=== PATIENT | female | born 1930 | race Caucasian/White ===

== ENCOUNTER → 2017-04-01 | Outpatient (CLI) | payer MEDICARE ==
--- NOTE | 2017-04-01 11:58 | ECHOF ---
Referral Reason:R01.1 cardiac murmur unspecified MEASUREMENTS -------- HEIGHT: 154.9 cm WEIGHT: 51.7 kg BP: 109/59 RVIDd: 2.9 cm (< 3.3) IVSd: 0.8 cm (0.6 - 1.1) LVIDd: 3.5 cm (3.9 - 5.3) LVPWd: 0.9 cm (0.6 - 1.1) IVSs: 1.4 cm LVIDs: 2.2 cm LVPWs: 1.3 cm LA Diam: 2.9 cm (2.7 - 3.8) LAESV Index (A-L): 17.52 ml/m Ao Diam: 2.9 cm (2.0 - 3.7) AV Cusp: 1.5 cm (1.5 - 2.6) MV EXCURSION: 11.540 mm (> 18.000) MV EF SLOPE: 10 mm/s (70 - 150) EPSS: 0.2 cm MV E Joe: 0.66 m/s MV DecT: 271 ms MV A Joe: 0.97 m/s MV E/A Ratio: 0.68 AV maxP.61 mmHg AV meanP.45 mmHg AR PHT: 488 ms RAP: 5.00 mmHg RVSP: 24.48 mmHg FINDINGS -------- Sinus rhythm. This was a technically good study. The left ventricular size is normal. Left ventricular wall thickness is normal. Overall left ventricular systolic function is normal with, an EF between 60 - 65 %. The right ventricle is normal in size and function. Normal LA size by volume 22+/-6 ml/m2. The right atrium is normal in size. There is moderate aortic valve sclerosis. There is mild aortic regurgitation. There is moderate aortic stenosis present. Peak/mean gradient across the Aortic Valve is 35.61mmHg / 21.45mmHg. Mild mitral annular calcification present. Mild mitral regurgitation is present. Mild tricuspid regurgitation present. Right ventricular systolic pressure is normal at < 35 mmHg. Trace/mild (physiologic) pulmonic regurgitation. The aortic root size is normal. Normal inferior vena cava with normal inspiratory collapse consistent with estimated right atrial pressure of 5 mmHg. The pericardium is normal. CONCLUSIONS -------- 1. Sinus rhythm. 2. There is moderate aortic stenosis present. 3. Peak/mean gradient across the Aortic Valve is 35.61mmHg / 21.45mmHg. 4. Mild mitral annular calcification present. 5. Mild mitral regurgitation is present. 6. Mild tricuspid regurgitation present. 7. Right ventricular systolic pressure is normal at < 35 mmHg. 8. Trace/mild (physiologic) pulmonic regurgitation. 9. The aortic root size is normal. 10. Normal inferior vena cava with normal inspiratory collapse consistent with estimated right atrial pressure of 5 mmHg. 11. The pericardium is normal. 12. This was a technically good study. 13. The left ventricular size is normal. 14. Left ventricular wall thickness is normal. 15. Overall left ventricular systolic function is normal with, an EF between 60 - 65 %. 16. The right ventricle is normal in size and function. 17. Normal LA size by volume 22+/-6 ml/m2. 18. The right atrium is normal in size. 19. There is mild aortic regurgitation. HAND LACER: Desiree Luis RDCS
== END | disposition home or self-care (01) ==
LOC: RADECHMAIN 08:01
PROVIDERS: ATTEND Family Medicine
DX: I08.3 Combined rheumatic disorders of mitral, aortic and tricuspid valves (principal); Z88.2 Allergy status to sulfonamides; Z88.1 Allergy status to other antibiotic agents
CPT/HCPCS: 93306

== ENCOUNTER → 2019-05-24 | Outpatient (CLI) | payer MEDICARE ==
--- NOTE | 2019-05-24 16:48 | US ---
EXAMINATION TYPE: US venous doppler duplex LE RT DATE OF EXAM: 05/24/2019 4:35 PM COMPARISON: NONE CLINICAL HISTORY: M79.661 right leg pain, I80.9 Phlebitis and thromb. Pt states right leg pain, no kn own prior DVT, not on blood thinners SIDE PERFORMED: Right TECHNIQUE: The lower extremity deep venous system is examined utilizing real time linear array sonog tess with graded compression, doppler sonography and color-flow sonography. VESSELS IMAGED: External Iliac Vein (EIV) Common Femoral Vein Deep Femoral Vein Greater Saphenous Vein * Femoral Vein Popliteal Vein Small Saphenous Vein * Proximal Calf Veins (* superficial vessels) FINDINGS: Grayscale, color doppler, spectral doppler imaging performed of the deep veins of the lower extremities. There is normal flow, compressibility, vascular waveforms. In the popliteal fossa there is an ill-defined parenchymal anechoic region measuring approximate 5 cm CC x 2.5 x 2.5 cm. This can be proven with MRI if clinically necessary, while with continued clinica l surveillance. Results called to Bart at 's office at time of exam Impression: 1) Negative for DVT, right lower extremity. 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
== END | disposition home or self-care (01) ==
LOC: RADUSWWP 16:16
PROVIDERS: ATTEND Orthopaedic Surgery
DX: M71.21 Synovial cyst of popliteal space [Baker], right knee (principal)

== ENCOUNTER → 2020-03-20 | Outpatient (CLI) | payer MEDICARE ==
[2020-03-20 18:49] LABS: African American GFR (CKD) 76.3 (60.0-200.0); Albumin 4.3 g/dL (3.80-4.90); Albumin/Globulin Ratio 2.53 (1.60-3.17); Anion Gap 8.2 mmol/L (4.00-12.00); Calcium 9.1 mg/dL (8.7-10.3); Carbon Dioxide 30.8 mmol/L (21.6-31.8); Globulin 1.7 g/dL (1.6-3.3); Non-African American GFR(CKD) 65.8 (60.0-200.0); Potassium 3.9 mmol/L (3.5-5.5); Total Bilirubin 0.5 mg/dL (0.2-1.2)
== END | disposition home or self-care (01) ==
LOC: LABWHC1 10:09
PROVIDERS: ATTEND Internal Medicine Interventional Cardiology
DX: I10 Essential (primary) hypertension (principal); I35.0 Nonrheumatic aortic (valve) stenosis
CPT/HCPCS: 36415; 80053; 83880

== ENCOUNTER → 2020-07-11 | Outpatient (CLI) | payer MEDICARE ==
--- NOTE | 2020-07-11 11:31 | MR ---
EXAMINATION TYPE: MR lumbar spine wo con DATE OF EXAM: 07/11/2020 COMPARISON: CT 02/29/2016 HISTORY: Low back and right leg pain TECHNIQUE: Multiplanar, multisequence images of the lumbar spine were acquired. L1-L2: Normal disc appearance without desiccation. No herniation, protrusion or disc bulging. No ca nal stenosis is present. Foramina are patent bilaterally. There is some facet arthropathy. L2-L3: Posterior broad-based disc bulge causes mild anterior mass effect on the thecal sac. Circumfer ential extension endplate disc complex encroaches on the right neural foramen. There is facet arthrop athy change with hypertrophy ligamentum flavum causing posterior lateral mass effect on the thecal sa c. L3-L4: Posterior broad-based disc bulge causes only minimal anterior mass effect on the thecal sac. F acet arthropathy with hypertrophy ligamentum flavum causes some posterior lateral mass effect on the thecal sac. No significant spinal stenosis or foraminal encroachment. L4-L5: Posterior broad-based disc bulge causes mild anterior mass effect on the thecal sac. Facet art hropathy with hypertrophy ligamentum flavum causes minimal posterior lateral mass effect on the theca l sac. Circumferential extension endplate disc complex encroaches somewhat on the left neural foramen , possibly contributed by spinal curvature. L5-S1: There is some facet arthropathy change. Lateral extension of endplate disc complex contributed by spinal curvature causes some foraminal encroachment on the left. Posterior disc bulge is minimal, may contact the proximal S1 nerve roots. Lumbar segments are intact. No paraspinal masses are identified. Conus medullaris has a normal appe arance. There is a spinal curvature present. Lumbar vertebral bodies show preserved height. Multileve l spondylosis is present with endplate discogenic marrow signal changes. Loss of disc height signal p resent L2-3, L3-4 and L4-5, L5-S1. 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 IMPRESSION: Degenerative disc disease, facet arthropathy, spinal curvature, neural foraminal encroachment as desc ribed.
== END | disposition home or self-care (01) ==
LOC: RADMRIMAIN 08:42
PROVIDERS: ATTEND Orthopaedic Surgery Sports Medicine
DX: M51.16 Intervertebral disc disorders with radiculopathy, lumbar region (principal); M47.26 Other spondylosis with radiculopathy, lumbar region; M43.8X6 Other specified deforming dorsopathies, lumbar region
CPT/HCPCS: 72148

== ENCOUNTER 2020-07-22 23:17 | Emergency (ER) | payer MEDICARE ==
[2020-07-22 23:29] VITALS: TEMP 97.6
--- NOTE | 2020-07-23 02:04 | ED ---
Skin/Abscess/FB HPI - General Chief complaint: Skin/Abscess/Foreign Body Stated complaint: Poss allergic reaction Time Seen by Provider: 07/23/20 00:44 Source: patient Mode of arrival: ambulatory Limitations: no limitations - History of Present Illness MD complaint: rash -: hour(s) Tetanus Up to Date: yes Location: LLE, RLE Severity: mild Improves with: none Worsens with: none Context: new medication Associated symptoms: denies other symptoms Treatments Prior to Arrival: none - Related Data Allergies Allergy/AdvReac Type Severity Reaction Status Date / Time ciprofloxacin [From Cipro] Allergy Unknown Verified 07/22/20 23:29 Review of Systems ROS Statement: Those systems with pertinent positive or pertinent negative responses have been documented in the HPI. ROS Other: All systems not noted in ROS Statement are negative. Constitutional: Denies: fever, chills, weakness ENT: Denies: throat pain Respiratory: Denies: cough, dyspnea Cardiovascular: Denies: chest pain, palpitations, edema, syncope Gastrointestinal: Denies: abdominal pain, nausea, vomiting, diarrhea Genitourinary: Denies: dysuria, frequency, hematuria Musculoskeletal: Denies: back pain, arthralgia Skin: Reports: rash Neurological: Denies: headache, weakness, numbness Past Medical History Past Medical History: Hypertension Additional Past Medical History / Comment(s): Aortic Heart Valve Stenosis History of Any Multi-Drug Resistant Organisms: None Reported Past Surgical History: Cholecystectomy, Hysterectomy, Orthopedic Surgery Additional Past Surgical History / Comment(s): left knee replacement, bladder suspension Past Psychological History: No Psychological Hx Reported Smoking Status: Never smoker Past Alcohol Use History: Occasional Past Drug Use History: None Reported General Exam Limitations: no limitations General appearance: alert, in no apparent distress Head exam: Present: atraumatic, normocephalic ENT exam: Present: normal oropharynx Respiratory exam: Present: normal lung sounds bilaterally. Absent: respiratory distress, wheezes, rales, rhonchi, stridor Cardiovascular Exam: Present: regular rate, normal rhythm, normal heart sounds. Absent: systolic murmur, diastolic murmur, rubs, gallop GI/Abdominal exam: Present: soft. Absent: distended, tenderness, guarding, rebound, mass Extremities exam: Present: normal capillary refill. Absent: pedal edema, calf tenderness Neurological exam: Present: alert Skin exam: Present: warm, dry, intact, petechiae, other (Patient has pretibial petechiae bilaterally.). Absent: cyanosis, diaphoretic Course Vital Signs 07/22/20 07/23/20 07/23/20 23:21 01:00 02:00 Temperature 97.6 F Pulse Rate 74 85 88 Respiratory 16 18 18 Rate Blood Pressure 199/96 155/75 147/85 O2 Sat by Pulse 100 98 98 Oximetry 07/23/20 03:00 Temperature Pulse Rate 84 Respiratory 18 Rate Blood Pressure 142/77 O2 Sat by Pulse 99 Oximetry Medical Decision Making - Medical Decision Making Patient on the exam does have some capillaritis. Discussed suspicion of reaction to either her recent course of Macrobid or possibly to viral infection. Patient has a very stop taking the medication. Will have patient follow-up to ensure that this is not worsening and that it indeed does resolve. - Lab Data Result diagrams: 07/23/20 01:48 07/23/20 01:48 Lab Results 07/23/20 07/23/20 Range/Units 01:48 01:48 WBC 9.0 (3.8-10.6) k/uL RBC 4.67 (3.80-5.40) m/uL Hgb 13.8 (11.4-16.0) gm/dL Hct 42.5 (34.0-46.0) % MCV 91.1 (80.0-100.0) fL MCH 29.6 (25.0-35.0) pg MCHC 32.5 (31.0-37.0) g/dL RDW 12.7 (11.5-15.5) % Plt Count 137 L (150-450) k/uL Neutrophils % 62 % Lymphocytes % 29 % Monocytes % 4 % Eosinophils % 2 % Basophils % 1 % Neutrophils # 5.6 (1.3-7.7) k/uL Lymphocytes # 2.7 (1.0-4.8) k/uL Monocytes # 0.3 (0-1.0) k/uL Eosinophils # 0.2 (0-0.7) k/uL Basophils # 0.1 (0-0.2) k/uL Sodium 136 L (137-145) mmol/L Potassium 3.6 (3.5-5.1) mmol/L Chloride 99 (98-107) mmol/L Carbon Dioxide 30 (22-30) mmol/L Anion Gap 7 mmol/L BUN 16 (7-17) mg/dL Creatinine 0.83 (0.52-1.04) mg/dL Est GFR (CKD-EPI)AfAm 73 (>60 ml/min/1.73 sqM) Est GFR (CKD-EPI)NonAf 63 (>60 ml/min/1.73 sqM) Glucose 112 H (74-99) mg/dL Calcium 9.3 (8.4-10.2) mg/dL Total Bilirubin 0.5 (0.2-1.3) mg/dL AST 28 (14-36) U/L ALT 13 (4-34) U/L Alkaline Phosphatase 77 (38-126) U/L Total Protein 6.2 L (6.3-8.2) g/dL Albumin 4.0 (3.5-5.0) g/dL Disposition Clinical Impression: Capillaritis, Hypertension Disposition: HOME SELF-CARE Condition: Good Instructions (If sedation given, give patient instructions): Hypertension (ED), Purpura (ED) Is patient prescribed a controlled substance at d/c from ED?: No Referrals: Glenis Roland MD [Primary Care Provider] - 1-2 days
[2020-07-23 02:19] LABS: Basophils # (A) 0.1 k/uL (0-0.2); Basophils % (A) 1 %; Calcium 9.3 mg/dL (8.4-10.2); Eosinophils # (A) 0.2 k/uL (0-0.7); Eosinophils % (A) 2 %; HCT 42.5 % (34.0-46.0); HGB 13.8 gm/dL (11.4-16.0); Lymphocytes # (A) 2.7 k/uL (1.0-4.8); Lymphocytes % (A) 29 %; MCH 29.6 pg (25.0-35.0); MCHC 32.5 g/dL (31.0-37.0); MCV 91.1 fL (80.0-100.0); Mean Platelet Volume 8.6; Monocytes # (A) 0.3 k/uL (0-1.0); Monocytes % (A) 4 %; Neutrophils # (A) 5.6 k/uL (1.3-7.7); Neutrophils % (A) 62 %; Platelet Count 137 k/uL (150-450); Potassium 3.6 mmol/L (3.5-5.1); RBC 4.67 m/uL (3.80-5.40); RDW 12.7 % (11.5-15.5); Total Bilirubin 0.5 mg/dL (0.2-1.3); Total Protein 6.2 g/dL (6.3-8.2)
[2020-07-23 05:03] VITALS: RESP 18
[2020-07-23 05:04] VITALS: BP 142/77; PULSE 84
== END 2020-07-23 03:30 | disposition home or self-care (01) ==
LOC: EC 23:17
DX: I10 Essential (primary) hypertension (principal); R23.3 Spontaneous ecchymoses; Z88.1 Allergy status to other antibiotic agents; Z96.652 Presence of left artificial knee joint
CPT/HCPCS: 36415; 80053; 85025; 99283

== ENCOUNTER → 2020-08-10 | Outpatient (CLI) | payer MEDICARE ==
--- NOTE | 2020-08-16 15:06 | P.ARTDOP ---
Arterial Doppler LOWER EXTREMITY ARTERIAL DOPPLER: DATE OF SERVICE: 08/10/2020 Reason for study: Bilateral leg pain. Doppler waveforms: Multiphasic bilaterally throughout. Pulse volume recording: []. Pressure gradients: None. Ankle-brachial indices: Greater than 1 bilaterally. Toe brachial indices: 0.84 on the right, 0.77 on the left Impression: Normal study.
== END | disposition home or self-care (01) ==
LOC: RADUSWWP 09:56
PROVIDERS: ATTEND Family Medicine
DX: I99.8 Other disorder of circulatory system (principal)
CPT/HCPCS: 93922